=== PATIENT | female | born 1980 | race Two or more races ===

== ENCOUNTER 2017-12-13 10:33 | Outpatient (CLI) | payer OTHER | END 2017-12-13 10:37 | disposition home or self-care (01) | LOC: SONOGRAMA 10:33 | DX: N92.0 Excessive and frequent menstruation with regular cycle (principal); N84.0 Polyp of corpus uteri; D25.1 Intramural leiomyoma of uterus ==

== ENCOUNTER 2018-05-18 07:59 | Outpatient (CLI) | payer OTHER ==
[~2018-05-18 07:59] MED LIST: IBUPROFEN800 MG PO; NORFLEX100MG PO
== END 2018-05-18 08:03 | disposition home or self-care (01) ==
LOC: LAB 07:59
DX: E03.8 Other specified hypothyroidism (principal); E55.9 Vitamin D deficiency, unspecified